=== PATIENT | female | born 1990 | race Caucasian/White ===

== ENCOUNTER → 2021-02-17 | Outpatient (REF) | payer OTHER, MEDICAID ==
[2021-02-17 13:56] LABS: HEMATOCRIT 34.8 % (36.0-47.0); HEMOGLOBIN 11.3 g/dl (12.0-15.5); MEAN CORPUSCULAR HEMOGLOBIN 30.8 pg (27.0-33.0); MEAN CORPUSCULAR HGB CONC 32.5 g/dl (32.0-36.5); MEAN CORPUSCULAR VOLUME 94.8 fl (80.0-96.0); PLATELET COUNT, AUTOMATED 381 10^3/uL (150-450); RED BLOOD COUNT 3.67 10^6/uL (4.00-5.40); WHITE BLOOD COUNT 8.4 10^3/uL (4.0-10.0)
[2021-02-17 15:09] LABS: HEPATITIS C VIRUS ABY INDEX < 0.0 INDEX (<0.8); HIV 1&2 SCREEN CENTAUR NEGATIVE (NEGATIVE)
== END ==
LOC: M PLALAB 10:47
PROVIDERS: ATTEND Advanced Practice Midwife
DX: O34.211 Maternal care for low transverse scar from previous cesarean delivery (principal)

== ENCOUNTER → 2021-05-11 | Outpatient (CLI) | payer OTHER ==
--- NOTE | 2021-05-12 07:35 | REP ---
INDICATION: F/U ANATOMY COMPARISON: 03/24/2021 TECHNIQUE: Transabdominal obstetrical ultrasound with color Doppler evaluation. FINDINGS: Examination demonstrates a single live intrauterine in cephalic presentation. motion is identified by technologist. Placenta is noted anterior and grade 1 without evidence for placenta previa or abruption. Amniotic fluid volume is greater than normal limits. Cervix appears closed. Selected gestational age: 25 weeks 6 days with ANGEL 08/18/2021. Gestational age by current measurements 25 weeks 5 days with ANGEL 08/19/2021. FHR equals 152 beats per minute. JOJO: 23.6 cm (9.7-22.3) Estimated weight 837 grams (31stpercentile). Anatomical assessment demonstrates normal structures including cranium, choroid plexus, cavum, cerebellum/posterior fossa, facial features, lungs, diaphragm, stomach, cord insertion/three-vessel cord, kidneys/bladder, spine, and extremities. IMPRESSION: Single live intrauterine in cephalic presentation demonstrating appropriate interval growth. In conjunction with prior examination anatomical assessment is complete and normal. Amniotic fluid volume is minimally beyond normal limits suggesting polyhydramnios. <Electronically signed by Domenico Quintanilla > 05/12/21 [id number]
== END ==
LOC: M WHC 14:26
PROVIDERS: ATTEND Advanced Practice Midwife
DX: Z34.92 Encounter for supervision of normal pregnancy, unspecified, second trimester (principal)

== ENCOUNTER → 2021-05-20 | Outpatient (REF) | payer OTHER, MEDICAID ==
[2021-05-20 15:32] LABS: HEMOGLOBIN 9.6 g/dl (12.0-15.5); MEAN CORPUSCULAR HEMOGLOBIN 30.6 pg (27.0-33.0); MEAN CORPUSCULAR VOLUME 98.7 fl (80.0-96.0); PLATELET COUNT, AUTOMATED 409 10^3/uL (150-450); RED BLOOD COUNT 3.14 10^6/uL (4.00-5.40); WHITE BLOOD COUNT 9.8 10^3/uL (4.0-10.0)
== END ==
LOC: M PLALAB 11:13
PROVIDERS: ATTEND Advanced Practice Midwife
DX: Z34.92 Encounter for supervision of normal pregnancy, unspecified, second trimester (principal)

== ENCOUNTER 2021-05-31 10:41 | Emergency (ER) | payer MEDICAID, OTHER ==
[~2021-05-31] VITALS: Ht 157.5 cm; Wt 54.9 kg
[2021-05-31 10:42] VITALS: BP 109/60
[2021-05-31] MEDS ORDERED: MULTTAB20 PO (11:11)
[2021-05-31] MEDS ORDERED: FERR32TA (11:11)
== END 2021-05-31 15:42 | disposition left against medical advice (07) ==
LOC: M ED 10:41
DX: Z53.21 Procedure and treatment not carried out due to patient leaving prior to being seen by health care provider (principal)

== ENCOUNTER 2021-07-21 00:23 | Outpatient (CLI) | payer OTHER, MEDICAID ==
[~2021-07-21] VITALS: Ht 157.5 cm; Wt 58.5 kg
[~2021-07-21 00:23] MED LIST changes: -COLA100C5 PO
[2021-07-21 00:45] VITALS: BP 101/61
[2021-07-21] MEDS ORDERED: COLA100C5 PO (00:55)
--- NOTE | 2021-07-21 06:14 | IPN ---
PROGRESS NOTE DATE: 07/21/2021 SUBJECTIVE: Irene is a 31-year-old 3 para 1-0-1-1 at 36 weeks gestation, EDC of 08/18/2021 based on last menstrual period. She presents to labor and delivery today with a report of pelvic discomfort, occasional contractions, and question water breaking at noon yesterday. She denies vaginal bleeding and denies further leak of fluid. The fetus has been active. Her care was initiated at [facility] in the first trimester. 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 OBSTETRIC HISTORY: October 23, 2018: 40 weeks gestation, 6 pound, 11 ounce male, section due to arrest of descent. OB LABS: A positive, antibody screen negative, syphilis negative, gonorrhea and chlamydia negative. Hepatitis B surface antibody negative. Hep C negative. HIV negative. Rubella immune. Gestational diabetic screening normal at 85, GBS is unknown PAST MEDICAL HISTORY: Cystic fibrosis carrier. Childhood varicella. PAST SURGICAL HISTORY: section. FAMILY HISTORY: Cancer. SOCIAL HISTORY: Patient is single, partner is supportive and at bedside. She is a former smoker. She denies alcohol and drug use. She denies any history of sexually transmitted infections. She denies a history of abuse, physical, sexual and emotional. ALLERGIES: Seafood. CURRENT MEDICATIONS: Iron 325 mg p.o. b.i.d. and Colace stool softener. OBJECTIVE: Temperature 98.7, pulse 114, respirations 18, blood pressure is 101/61. She is alert and oriented x3. She does not appear in any distress. heart rate is 145 with moderate variability, positive accelerations, negative decelerations. There is no pattern of regular contractions. Sterile speculum exam: Negative Valsalva, negative pooling, negative Nitrazine and negative ferning. Sterile vaginal exam: Fingertip dilated, thick and ballottable. ASSESSMENT: Intrauterine at 36 weeks, heart rate is Category 1, not ruptured, not in labor. PLAN: Discharge the patient home. She is to keep her visit that is scheduled at 10 a.m. this morning for consent for repeat section in the office. I did review discharge instructions that include signs and symptoms of labor, movement counts and danger signs, I reviewed access to care. Patient and her partner have had their questions answered and do desire discharge home.
== END 2021-07-21 02:00 | disposition home or self-care (01) ==
LOC: M LDO 00:23
PROVIDERS: ATTEND Advanced Practice Midwife
DX: O26.893 Other specified pregnancy related conditions, third trimester (principal); R10.2 Pelvic and perineal pain; Z3A.36 36 weeks gestation of pregnancy; O34.211 Maternal care for low transverse scar from previous cesarean delivery; O99.013 Anemia complicating pregnancy, third trimester; D64.9 Anemia, unspecified; Z14.1 Cystic fibrosis carrier; Z87.891 Personal history of nicotine dependence; Z91.013 Allergy to seafood

== ENCOUNTER → 2021-07-21 | Outpatient (CLI) | payer OTHER ==
[~2021-07-21] MED LIST: COLA100C5 PO; FERR32TA; MULTTAB20 PO
[2021-07-21 14:15] LABS: HEMATOCRIT 27.1 % (36.0-47.0); HEMOGLOBIN 8.7 g/dl (12.0-15.5); MEAN CORPUSCULAR HEMOGLOBIN 30.5 pg (27.0-33.0); MEAN CORPUSCULAR HGB CONC 32.1 g/dl (32.0-36.5); MEAN CORPUSCULAR VOLUME 95.1 fl (80.0-96.0); PLATELET COUNT, AUTOMATED 382 10^3/uL (150-450); RED BLOOD COUNT 2.85 10^6/uL (4.00-5.40)
== END ==
LOC: M PLALAB 11:05
PROVIDERS: ATTEND Advanced Practice Midwife
DX: O99.013 Anemia complicating pregnancy, third trimester (principal)

== ENCOUNTER → 2021-07-21 | Outpatient (REF) | payer OTHER, MEDICAID | LOC: M SFHCWAGY 12:02 | PROVIDERS: ATTEND Advanced Practice Midwife | DX: Z36.89 Encounter for other specified antenatal screening (principal); Z3A.36 36 weeks gestation of pregnancy ==

== ENCOUNTER 2021-07-27 09:01 | Outpatient (CLI) | payer OTHER ==
[~2021-07-27] VITALS: Ht 157.5 cm; Wt 58.5 kg
[~2021-07-27 09:01] MED LIST changes: +COLA100C5 PO; +IRON SUCROSE 500 MG in NS 250 ML OVER 4 HRS IV ONE
[2021-07-27 09:05] VITALS: BP 103/61
[2021-07-27 10:33] VITALS: BP 102/59
[2021-07-27 11:30] VITALS: BP 110/59
[2021-07-27 12:30] VITALS: BP 99/55
[2021-07-27 13:30] VITALS: BP 100/59
[2021-07-27 13:50] VITALS: BP 104/64
== END 2021-07-27 13:50 | disposition home or self-care (01) ==
LOC: M INFU 09:01
PROVIDERS: ATTEND Advanced Practice Midwife
DX: O99.019 Anemia complicating pregnancy, unspecified trimester (principal); D64.9 Anemia, unspecified; Z91.013 Allergy to seafood; Z3A.00 Weeks of gestation of pregnancy not specified
CPT/HCPCS: 96365; 96366; J1756

== ENCOUNTER → 2021-08-06 | Outpatient (CLI) | payer OTHER ==
[~2021-08-06] MED LIST changes: -IRON SUCROSE 500 MG in NS 250 ML OVER 4 HRS IV ONE
== END ==
LOC: M LABSMTC 11:32
PROVIDERS: ATTEND Anesthesiology
DX: Z01.812 Encounter for preprocedural laboratory examination (principal); Z20.822 Contact with and (suspected) exposure to COVID-19

== ENCOUNTER 2021-08-11 07:54 | Inpatient (IN) | payer OTHER ==
[~2021-08-11] VITALS: Ht 157.5 cm; Wt 59.9 kg
[2021-08-11] VITALS (7 sets, daily range): BP systolic 95–108; BP diastolic 54–60
[2021-08-11] MEDS: LR 1,000 ML IV SCH ×2 (09:30→11:20)
[2021-08-11] MEDS ORDERED: ONDANSETRON 4MG/2ML VIAL As Ordered ONE (09:47)
[2021-08-11] MEDS ORDERED: KETOROLAC 60MG 2ML VIAL As Ordered ONE (09:47)
[2021-08-11] MEDS ORDERED: OXYTOCIN INJ 10 UNITS/ML VIAL (J2590) As Ordered ONE (09:47)
[2021-08-11] MEDS ORDERED: dexameTHASONE 4 MG/ML 1ML VIAL (J1100 PER 1MG) As Ordered ONE (09:47)
[2021-08-11] MEDS ORDERED: fentaNYL 100 MCG/2 ML INJECTION (J3010) As Ordered ONE (09:48)
[2021-08-11] MEDS ORDERED: MORPHINE PRES-FREE INJ 10 MG/10 ML VIAL (J2274) As Ordered ONE (09:48)
[2021-08-11] MEDS ORDERED: ceFAZolin SOD 1 GM in D5W MINI-BAG PLUS 50 ML IV SCH (10:00)
[2021-08-11 10:02] LABS: HEMATOCRIT 29.3 % (36.0-47.0); HEMOGLOBIN 9.5 g/dl (12.0-15.5); MEAN CORPUSCULAR HEMOGLOBIN 30.5 pg (27.0-33.0); MEAN CORPUSCULAR HGB CONC 32.4 g/dl (32.0-36.5); MEAN CORPUSCULAR VOLUME 94.2 fl (80.0-96.0); PLATELET COUNT, AUTOMATED 486 10^3/uL (150-450); RED BLOOD COUNT 3.11 10^6/uL (4.00-5.40); WHITE BLOOD COUNT 12.3 10^3/uL (4.0-10.0)
[2021-08-11] MEDS ORDERED: BICITRA 30ML SOLN UDC PO ONE (10:15)
[2021-08-11] MEDS ORDERED: METOCLOPRAMIDE INJ 10MG/2ML VIAL (J2765 PER 1) IV PRN (11:51)
[2021-08-11] MEDS ORDERED: NALBUPHINE HCL 10 MG/ML AMP (J2300) IV PRN (11:51)
[2021-08-11] MEDS ORDERED: diphenhydrAMINE 50MG/ML VIAL (J1200) IV PRN (11:51)
[2021-08-11] MEDS ORDERED: ONDANSETRON 4MG/2ML VIAL IV PRN ×2 (11:51→13:25)
[2021-08-11] MEDS ORDERED: NALOXONE INJ 0.4MG/1ML VIAL (J2310 PER 1MG) IV PRN ×2 (11:51)
[2021-08-11] MEDS ORDERED: diphenhydrAMINE 50MG/ML VIAL (J1200) As Ordered ONE (12:09)
[2021-08-11] MEDS ORDERED: ePHEDrine SULFATE 25 MG/5 ML(5MG/ML) SYRINGE As Ordered ONE (12:24)
[2021-08-11] MEDS ORDERED: PHENYLephrine 500MCG 5ML (100MCG/ML) SYRINGE As Ordered ONE (12:24)
[2021-08-11] MEDS ORDERED: PERCOCET 5MG/325MG TAB PO PRN ×2 (13:05→13:25)
[2021-08-11] MEDS ORDERED: RHOGAM 300 MCG (1500 IU) INJ (J2790) IM SCH (13:05)
[2021-08-11] MEDS ORDERED: ACETAMINOPHEN 500 MG TAB PO PRN (13:05)
[2021-08-11] MEDS ORDERED: MEASLES,MUMPS,RUBELLA VACCINE INJ (MMR-II) (90707) SC SCH (13:05)
[2021-08-11] MEDS ORDERED: SIMETHICONE 80MG CHEW TAB PO PRN (13:05)
[2021-08-11] MEDS ORDERED: OXYTOCIN DRIP 30 UNITS in IV 1 EA IV SCH (13:05)
--- NOTE | 2021-08-11 13:11 | ROOPDOC ---
[facility] Report Of Operation Report of Operation DATE OF PROCEDURE: 08/11/2021 PREPROCEDURE DIAGNOSES: 39+ weeks gestation, history of prior low transverse section, declines trial of labor POSTPROCEDURE DIAGNOSES: Same PROCEDURE: Elective repeat low transverse section SURGEON: Espinoza Bloom DO FACOG BUSINESS ENGLISH INSTRUCTOR: Josemanuel Montoya MD (Essential role in retraction, extraction, and closure of all tissue layers) ANESTHESIA: Spinal with Duramorph ESTIMATED BLOOD LOSS: 500 mL. IV FLUIDS: 1700 mL LR URINE OUTPUT: 400 mL COMPLICATIONS: None. PREOPERATIVE ANTIBIOTICS: Ancef 2g IV x 1. COMPLICATIONS: none DATA: Apgars 9 and 9. Birthweight 2850 g, 6 lbs 5 oz. Male. SPECIMENS: none PRIMARY INDICATION FOR : History of prior low transverse section. DESCRIPTION OF PROCEDURE: The patient was counseled on the risks, benefits, indications and alternatives of the procedure. Informed consent was obtained. She was taken to the operating room with IV running and placed on the operating table in the dorsal supine position with a leftward tilt. Regional anesthesia was found to be adequate. Sequential compression devices were placed on the lower extremities. A Sigala catheter was placed under sterile conditions. She was prepared and draped in normal sterile fashion. A time out was performed per protocol. Regional anesthesia was again found to be adequate. A Pfannenstiel skin incision was made with the 10 blade. The 10 blade was used to dissect down to the level of the rectus sheath fascia. The rectus sheath pressure was incised midline and this was extended bilaterally with Bear scissors , and manual stretch. The rectus muscle bellies were dissected off the rectus sheath fascia superiorly and inferiorly using both sharp and blunt dissection. The midline was identified. The peritoneum was identified and entered digitally. The peritoneal opening was extended with manual stretch. The Mobius retractor was placed. The vesicouterine peritoneum was dissected with Metzenbaum scissors to create the bladder flap. Adhesiolysis was performed around the lower uterine segment. A low transverse uterine incision was made with the 10 blade. This was extended with manual stretch. The amniotic sac was punctured, and clear fluid was noted. The baby delivered through the hysterotomy without difficulty. The cord was doubly clamped and cut, and the baby was handed off to awaiting care. data shown above. The placenta was removed manually. The intrauterine cavity was cleared of all clot and debris. The hysterotomy was closed with 0 Vicryl in running locked fashion. This was reinforced with a second imbricating layer using 0 Vicryl in running fashion. Excellent hemostasis of the hysterotomy was noted. The pelvis was irrigated and the fluid suctioned. The Mobius retractor was removed. The peritoneum was closed with 3-0 Vicryl running fashion. The rectus muscle bellies were reapproximated with interrupted stitches using 3-0 Vicryl. The rectus muscles bellies were hemostatic. The rectus sheath fascia was closed with 0 Vicryl running fashion. The subcutaneous layer was irrigated and the fluid suctioned. Small bleeding vessels were cauterized with Bovie. Excellent hemostasis was noted. The subcutaneous layer was reapproximated with 3-0 Vicryl running fashion. Skin was closed with 3-0 Monocryl in subcuticular fashion. An Optifoam bandage was placed over the closed incision. Sponge, needle and instrument counts were correct per protocol throughout the procedure. The patient tolerated the entire procedure very well. She was transferred to the PACU in stable condition. DO PAMELA Reddy JONATHAN R. DO Aug 11, 2021 13:11
[2021-08-11] MEDS ORDERED: PERCOCET PO (13:13)
[2021-08-11] MEDS ORDERED: IBUP80TA PO (13:13)
[2021-08-11] MEDS ORDERED: DOCU100C16 PO (13:13)
[2021-08-11] MEDS ORDERED: OXYTOCIN 30 UNITS IN 0.9% NaCl 500ML IV BAG (J2590) As Ordered ONE (13:20)
[2021-08-11] MEDS ORDERED: fentaNYL 100 MCG/2 ML INJECTION (J3010) IV PRN (13:25)
[2021-08-11] MEDS ORDERED: LR 1,000 ML IV SCH (13:25)
[2021-08-11] MEDS ORDERED: MEPERIDINE INJ 25 MG/ML VIAL (J2175) IV PRN (13:25)
[2021-08-11] MEDS: PRENATAL VITAMINS CHEWABLE TABLET PO SCH (14:34)
[2021-08-11] MEDS ORDERED: LR 500 ML IV ONE (17:20)
[2021-08-11] MEDS: DOCUSATE SODIUM 100MG CAPSULE PO SCH (19:45)
[2021-08-11] MEDS: KETOROLAC 30 MG/ML 1ML VIAL IV SCH (19:45)
[2021-08-12] MEDS: KETOROLAC 30 MG/ML 1ML VIAL IV SCH ×2 (01:14→07:00)
[2021-08-12 02:00] VITALS: BP 103/55
[2021-08-12 05:36] VITALS: BP 99/55
[2021-08-12 07:30] LABS: HEMATOCRIT 26.2 % (36.0-47.0); HEMOGLOBIN 8.4 g/dl (12.0-15.5); MEAN CORPUSCULAR HEMOGLOBIN 30.4 pg (27.0-33.0); MEAN CORPUSCULAR HGB CONC 32.1 g/dl (32.0-36.5); MEAN CORPUSCULAR VOLUME 94.9 fl (80.0-96.0); PLATELET COUNT, AUTOMATED 432 10^3/uL (150-450); RED BLOOD COUNT 2.76 10^6/uL (4.00-5.40); WHITE BLOOD COUNT 17.4 10^3/uL (4.0-10.0)
[2021-08-12] MEDS: DOCUSATE SODIUM 100MG CAPSULE PO SCH ×2 (08:18→20:34)
[2021-08-12] MEDS: PRENATAL VITAMINS CHEWABLE TABLET PO SCH (08:18)
[2021-08-12 09:56] VITALS: BP 107/63
[2021-08-12] MEDS ORDERED: INFLUENZA QUADRIVALENT PF VACCINE 0.5ML SYRINGE IM ONE (10:30)
[2021-08-12] MEDS: IBUPROFEN 800 MG TAB PO SCH ×2 (14:27→22:23)
[2021-08-12 15:37] VITALS: BP 113/63
[2021-08-12] MEDS: PERCOCET 5MG/325MG TAB PO PRN ×2 (16:41→22:23)
[2021-08-12 18:06] VITALS: BP 100/56
[2021-08-12 22:00] VITALS: BP 91/52
[2021-08-13] MEDS: PERCOCET 5MG/325MG TAB PO PRN ×2 (05:15→13:09)
[2021-08-13 05:41] VITALS: BP 106/56
[2021-08-13] MEDS: IBUPROFEN 800 MG TAB PO SCH (06:44)
[2021-08-13] MEDS ORDERED: INFLUENZA QUADRIVALENT PF VACCINE 0.5ML SYRINGE IM ONE (09:00)
[2021-08-13] MEDS: PRENATAL VITAMINS CHEWABLE TABLET PO SCH (09:22)
[2021-08-13] MEDS: DOCUSATE SODIUM 100MG CAPSULE PO SCH (09:22)
--- NOTE | 2021-08-13 12:03 | DS.PDOC ---
Discharge Summary General Date of Admission Aug 11, 2021 at 07:54 Date of Discharge Aug 13, 2021 Discharge Summary PROCEDURES PERFORMED DURING STAY: [None]. ADMITTING DIAGNOSES: 1. 39 weeks, prior section. DISCHARGE DIAGNOSES: 1. Same. COMPLICATIONS/CHIEF COMPLAINT: Previous Section. HISTORY OF PRESENT ILLNESS: 31-year-old female at 39 weeks gestation presents for repeat section. She is a history of a prior section.. HOSPITAL COURSE: 31-year-old female at 39 weeks gestation presents for repeat section. She is a history of a prior section. On August 11, 2021 the patient underwent repeat section for a 6 pound 5 ounce male infant. There were no complications. Her postoperative course unremarkable. She had adequate return of bladder and bowel function. She was deemed stable for discharge on postoperative day #2. DISCHARGE MEDICATIONS: Please see below. ALLERGIES: Please see below. PHYSICAL EXAMINATION ON DISCHARGE: VITAL SIGNS: Please see below. GENERAL: NAD HEENT: Within normal limits CARDIOVASCULAR EXAMINATION: RRR RESPIRATORY EXAMINATION: Clear to auscultation bilaterally ABDOMINAL EXAMINATION: Nontender EXTREMITIES: Nontender LABORATORY DATA: Please see below. PROGNOSIS: Good ACTIVITY: As tolerated DIET: Regular DISCHARGE PLAN: Home DISCHARGE INSTRUCTIONS: 1. Discharge home today. 2. Instructions reviewed 3. Remove dressing day five postop 4. Follow-up in the office 2 weeks DISCHARGE CONDITION: Stable. TIME SPENT ON DISCHARGE: minutes. Vital Signs/I&Os Vital Signs Date Time Temp Pulse Resp B/P (MAP) Pulse Ox O2 Delivery O2 Flow Rate FiO2 08/13/21 05:41 98.5 74 16 106/56 (73) 08/12/21 22:23 Room Air 08/12/21 18:06 99 I&O- Last 24 Hours up to 6 AM 08/13/21 06:00 Intake Total 250 ml Output Total 250 ml Balance 0 ml Discharge Medications Scheduled Docusate Sodium (Colace) 100 Mg Capsule, 1 CAP PO BID, (Reported) Docusate Sodium (Docusate Sodium) 100 Mg Capsule, 100 MG PO BID Ibuprofen (Ibuprofen) 800 Mg Tablet, 800 MG PO Q8H No122/Iron/Folic Acid ( Multi Tablet) 1 Each Tablet, 1 TAB PO DAILY, (Reported) Scheduled PRN Oxycodone/Acetaminophen (Oxycodone-Acetaminophen 5-325) 1 Each Tablet, 1 TAB PO Q4H PRN for MODERATE PAIN (PS 5-7) Miscellaneous Medications Ferrous Gluconate (Ferrous Gluconate) 324 Mg Tablet, (Reported) Allergies Coded Allergies: SEAFOOD (Verified Allergy, Severe, swelling an hives, 08/02/21) RUBINA DIAZ MD Aug 13, 2021 12:03
== END 2021-08-13 13:35 | disposition home or self-care (01) | DRG 540 ==
LOC: M LDI 07:54 → M OBS 15:04
PROVIDERS: ADMIT Obstetrics & Gynecology; ATTEND Obstetrics & Gynecology
PROC: 10D00Z1 Extraction of Products of Conception, Low, Open Approach (ICD-10-PCS; principal; 2021-08-11 09:30)
DX: O34.211 Maternal care for low transverse scar from previous cesarean delivery (principal); Z3A.39 39 weeks gestation of pregnancy; Z37.0 Single live birth

== ENCOUNTER → 2021-09-23 | Outpatient (CLI) | payer OTHER, MEDICAID ==
[~2021-09-23] MED LIST changes: +DOCU100C16 PO; +IBUP80TA PO; +PERCOCET PO
[2021-09-23 15:35] LABS: HEMATOCRIT 36.2 % (36.0-47.0); HEMOGLOBIN 11.7 g/dl (12.0-15.5); MEAN CORPUSCULAR HEMOGLOBIN 30.2 pg (27.0-33.0); MEAN CORPUSCULAR HGB CONC 32.3 g/dl (32.0-36.5); MEAN CORPUSCULAR VOLUME 93.5 fl (80.0-96.0); PLATELET COUNT, AUTOMATED 441 10^3/uL (150-450); RED BLOOD COUNT 3.87 10^6/uL (4.00-5.40); WHITE BLOOD COUNT 10.7 10^3/uL (4.0-10.0)
== END ==
LOC: M PLALAB 11:23
PROVIDERS: ATTEND Obstetrics & Gynecology
DX: Z39.2 Encounter for routine postpartum follow-up (principal)

== ENCOUNTER → 2022-09-08 | Outpatient (REF) | payer OTHER, MEDICAID | LOC: M SFHCWAGY 17:24 | PROVIDERS: ATTEND Obstetrics & Gynecology | DX: Z12.4 Encounter for screening for malignant neoplasm of cervix (principal) ==

== ENCOUNTER → 2022-09-15 | Outpatient (CLI) | payer MEDICAID, OTHER | LOC: M WHC 09:27 | PROVIDERS: ATTEND Obstetrics & Gynecology | DX: N93.9 Abnormal uterine and vaginal bleeding, unspecified (principal); D25.9 Leiomyoma of uterus, unspecified ==

== ENCOUNTER → 2022-12-05 | Outpatient (REF) | payer OTHER, MEDICAID | LOC: M PLALAB 10:49 | PROVIDERS: ATTEND Obstetrics & Gynecology | DX: N93.9 Abnormal uterine and vaginal bleeding, unspecified (principal) ==

== ENCOUNTER → 2023-04-05 | Outpatient (REF) | payer OTHER ==
[2023-04-05 15:08] LABS: BASO # 0.1 10^3/uL (0.0-0.2); BASO % 0.9 % (0.0-1.0); EOS # 0.1 10^3/uL (0.0-0.5); EOS % 1.1 % (0.0-3.0); HEMATOCRIT 42.4 % (36.0-47.0); HEMOGLOBIN 13.3 g/dl (12.0-15.5); LYMPH # 2.6 10^3/uL (1.5-5.0); LYMPH % 24.3 % (24.0-44.0); MEAN CORPUSCULAR HEMOGLOBIN 30.2 pg (27.0-33.0); MEAN CORPUSCULAR HGB CONC 31.4 g/dl (32.0-36.5); MEAN CORPUSCULAR VOLUME 96.1 fl (80.0-96.0); MONO # 0.5 10^3/uL (0.0-0.8); MONO % 5.1 % (2.0-8.0); NEUTROPHILS # 7.2 10^3/uL (1.5-8.5); NEUTROPHILS % 68.3 % (36.0-66.0); PLATELET COUNT, AUTOMATED 408 10^3/uL (150-450); RED BLOOD COUNT 4.41 10^6/uL (4.00-5.40); WHITE BLOOD COUNT 10.6 10^3/uL (4.0-10.0)
[2023-04-05 15:15] LABS: PERCENT SATURATION 18.5 % (13.2-45.0)
[2023-04-05 15:17] LABS: THYROID STIMULATING HORMONE 1.083 uIU/ML (0.55-4.78); TOTAL 25(OH) VITAMIN D 12.8 NG/ML (20.0-100.0)
[2023-04-05 15:18] LABS: FERRITIN 45.1 NG/ML (7.3-270.7)
== END ==
LOC: M LAB REF 12:24
PROVIDERS: ATTEND Pediatrics
DX: D64.9 Anemia, unspecified (principal); E55.9 Vitamin D deficiency, unspecified

== ENCOUNTER → 2023-05-11 | Outpatient (CLI) | payer OTHER ==
[~2023-05-11] MED LIST changes: +ALBU8.5H; +CLIN1LOT; +DOXY50CA; +NOXI1TAB PO; +SYMB16INH
== END ==
LOC: M WHC 14:47
PROVIDERS: ATTEND Obstetrics & Gynecology
DX: D25.1 Intramural leiomyoma of uterus (principal)

== ENCOUNTER → 2024-02-04 | Outpatient (REF) | payer OTHER, MEDICAID ==
[2024-02-04 18:56] LABS: BASO # 0.1 10^3/uL (0.0-0.2); EOS # 0.1 10^3/uL (0.0-0.5); EOS % 1.5 % (0.0-3.0); HEMATOCRIT 38.5 % (36.0-47.0); HEMOGLOBIN 12.4 g/dl (12.0-15.5); LYMPH # 2.7 10^3/uL (1.5-5.0); LYMPH % 40.2 % (24.0-44.0); MEAN CORPUSCULAR HEMOGLOBIN 30.9 pg (27.0-33.0); MEAN CORPUSCULAR HGB CONC 32.2 g/dl (32.0-36.5); MONO # 0.4 10^3/uL (0.0-0.8); MONO % 6.2 % (2.0-8.0); NEUTROPHILS # 3.5 10^3/uL (1.5-8.5); PLATELET COUNT, AUTOMATED 399 10^3/uL (150-450); RED BLOOD COUNT 4.01 10^6/uL (4.00-5.40); WHITE BLOOD COUNT 6.8 10^3/uL (4.0-10.0)
[2024-02-04 19:31] LABS: PERCENT SATURATION 25.5 % (13.2-45.0)
[2024-02-04 19:36] LABS: THYROID STIMULATING HORMONE 2.153 uIU/ML (0.55-4.78); TOTAL 25(OH) VITAMIN D 27.6 NG/ML (20.0-100.0)
== END ==
LOC: M LAB REF 18:28
PROVIDERS: ATTEND Pediatrics
DX: D64.9 Anemia, unspecified (principal); E55.9 Vitamin D deficiency, unspecified

== ENCOUNTER → 2024-02-20 | Outpatient (REF) | payer OTHER, MEDICAID | LOC: M LAB REF 12:21 | PROVIDERS: ATTEND Physician Assistant | DX: J02.9 Acute pharyngitis, unspecified (principal) ==

== ENCOUNTER → 2024-11-12 | Outpatient (REF) | payer OTHER, MEDICAID ==
[2024-11-12 16:48] LABS: Trichomonas vaginalis (AMP) NOT DETECTED (NEGATIVE)
[2024-11-12 17:11] LABS: GC DNA AMPLIFICATION NEGATIVE (NEGATIVE)
== END ==
LOC: M SFHCWAGY 14:32
PROVIDERS: ATTEND Obstetrics & Gynecology
DX: Z12.4 Encounter for screening for malignant neoplasm of cervix (principal); Z11.3 Encounter for screening for infections with a predominantly sexual mode of transmission